=== PATIENT | male | born 1975 | race Caucasian/White ===

== ENCOUNTER → 2016-08-13 | Outpatient (CLI) | payer MEDICARE, MEDICAID | LOC: RAD 12:43 | PROVIDERS: ATTEND Specialist | DX: M51.16 Intervertebral disc disorders with radiculopathy, lumbar region (principal) | CPT/HCPCS: 36415; 72114; 72131 ==

== ENCOUNTER 2016-10-16 15:05 | Emergency (ER) | payer MEDICARE, MEDICAID ==
[2016-10-16] MEDS ORDERED: DEXAMETHASONE SOD PHOS INJ 10 MG/1 ML VIAL IM ONE (16:27)
[2016-10-16] MEDS ORDERED: KETOROLAC TROMETHAMINE 60 MG/2 ML SDV IM ONE (16:27)
--- NOTE | 2016-10-16 16:30 | ER Document Report ---
ED Neck/Back Problem - General Chief Complaint: Neck Pain < 24hrs old Stated Complaint: NECK PAIN Time Seen by Provider: 10/16/16 15:40 Mode of Arrival: Ambulatory Information source: Patient Notes: 21-year-old male presents to ED for complaint of neck pain radiating down his left arm TRAVEL OUTSIDE OF THE [place] IN LAST 30 DAYS: No - HPI Onset: This afternoon Where: Home, Outdoors - Lifting a log to put on a bonfire felt a pop in his neck and pain down his left arm like when he pinched his nerve in the past he states Onset: Gradual Timing: Still present Quality of pain: Burning, Sharp Severity: Severe Pain Level: 5 Context: Lifting Recent injury: Possibly Associated symptoms: Numbness/tingling, Radiation to arm Exacerbated by: Nothing Relieved by: Nothing Similar symptoms previously: Yes - Back not with neck Recently seen / treated by doctor: No - Related Data Allergies/Adverse Reactions: acetaminophen [From Vicodin] Allergy (Verified 10/16/16 16:14) codeine Allergy (Verified 10/16/16 16:14) hydrocodone [From Vicodin] Allergy (Verified 10/16/16 16:14) meloxicam [From Mobic] Allergy (Verified 10/16/16 16:14) H2O2 Allergy (Uncoded 10/16/16 16:14) Past Medical History - General Information source: Patient - Social History Smoking Status: Current Every Day Smoker Cigarette use (# per day): Yes - Half pack per day Chew tobacco use (# tins/day): No Smoking Education Provided: Yes - Less than 2 minutes Frequency of alcohol use: None Drug Abuse: None 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 Family History: Arthritis, CAD, COPD, CVA, Hyperlipidemia, Hypertension, Thyroid Disfunction - Past Medical History Cardiac Medical History: Reports: Hx Hypertension Pulmonary Medical History: Reports: None EENT Medical History: Reports: None Neurological Medical History: Reports: None Endocrine Medical History: Reports: None Renal/ Medical History: Reports: Hx Kidney Stones Malignancy Medical History: Reports None GI Medical History: Reports: Hx Gastroesophageal Reflux Disease Musculoskeltal Medical History: Reports Hx Arthritis, Reports Hx Musculoskeletal Deformity, Reports Hx Musculoskeletal Trauma Skin Medical History: Reports None Psychiatric Medical History: Reports: None Traumatic Medical History: Reports: Hx Fractures Past Surgical History: Reports: Hx Orthopedic Surgery - back(bunionectomy discectomy and fusion) right shoulder, foot - Immunizations Hx Diphtheria, Pertussis, Tetanus Vaccination: Yes Review of Systems - Review of Systems Constitutional: No symptoms reported EENT: No symptoms reported Cardiovascular: No symptoms reported Respiratory: No symptoms reported Gastrointestinal: No symptoms reported Genitourinary: No symptoms reported Male Genitourinary: No symptoms reported Musculoskeletal: Neck pain - Down left arm Skin: No symptoms reported Hematologic/Lymphatic: No symptoms reported Neurological/Psychological: No symptoms reported, Tingling -: Yes All other systems reviewed and negative Physical Exam - Vital signs Vitals: Temp Pulse Resp BP Pulse Ox 98.1 F 93 16 149/106 H 99 10/16/16 15:14 10/16/16 15:14 10/16/16 15:14 10/16/16 15:14 10/16/16 15:14 Interpretation: Normal - General General appearance: Appears well, Alert - HEENT Head: Normocephalic, Atraumatic Eyes: Normal Pupils: PERRL - Respiratory Respiratory status: No respiratory distress Chest status: Nontender Breath sounds: Normal Chest palpation: Normal - Cardiovascular Rhythm: Regular Heart sounds: Normal auscultation Murmur: No - Abdominal Inspection: Normal Distension: No distension Bowel sounds: Normal Tenderness: Nontender Organomegaly: No organomegaly - Back Back: Normal, Tender, Vertebra tenderness, Scars - Previous surgeries. No: Deformity/step-off, CVA tenderness, Scoliosis, Wounds - Extremities General upper extremity: Normal inspection, Nontender, Normal color, Normal ROM , Normal temperature General lower extremity: Normal inspection, Nontender, Normal color, Normal ROM , Normal temperature, Normal weight bearing. No: Milvia's sign - Neurological Neuro grossly intact: Yes Cognition: Normal Orientation: AAOx4 [place] Coma Scale Eye Opening: Spontaneous [place] Coma Scale Verbal: Oriented [place] Coma Scale Motor: Obeys Commands [place] Coma Scale Total: 15 Speech: Normal Motor strength normal: LUE, RUE, LLE, RLE Sensory: Normal - Psychological Associated symptoms: Normal affect, Normal mood - Skin Skin Temperature: Warm Skin Moisture: Dry Skin Color: Normal Course - Re-evaluation Re-evalutation: 10/16/16 20:15 CT discussed with patient and written report given to patient. Patient was treated with Decadron and Toradol IM. Patient to follow-up with his primary doctor. - Vital Signs Vital signs: Temp Pulse Resp BP Pulse Ox 97.5 F 70 16 143/94 H 99 10/16/16 18:20 10/16/16 18:20 10/16/16 18:20 10/16/16 18:20 10/16/16 18:20 - Diagnostic Test Radiology reviewed: Image reviewed, Reports reviewed Discharge - Discharge Clinical Impression: Neck pain on left side Condition: Stable Disposition: HOME, SELF-CARE Additional Instructions: NECK INJURY (CERVICAL STRAIN): You have a neck strain. This is an injury to the muscles and ligaments in the neck. There is no evidence of a fracture of the neck bones. Also, no injury to the spinal cord or nerve roots was detected. Usually, stiffness and pain INCREASE for the first 24-48 hours after the injury. The pain will gradually resolve and the neck will become more mobile. Most patients are back at work or school within a few days. Typically, complete healing takes about two or three weeks. The usual initial treatment is rest and cold packs. A neck collar may be placed to keep the muscles of the neck at rest. Antiinflammatory and muscle relaxing medication are often used to reduce the spasm and irritation. You should call the doctor, or go to the hospital, if you develop numbness or weakness in any extremity, problems with your bladder or bowel, or pain radiating down the arms. MUSCLE STRAIN: You have strained a muscle -- torn the fibers within the muscle. This often occurs with strenuous exertion, or during an injury that suddenly stretches the muscle. The seriousness of a strain varies. Some strains heal within days, others cause problems for months. X-rays cannot show a muscle strain. X-rays are taken only if symptoms suggest that a fracture could be present. The usual treatment of a muscle strain is rest and ice packs. Sometimes, a sling, splint, or crutches may be necessary to rest the muscle. The muscle can be used again once pain subsides. Severe strains require a special exercise and stretching program to prevent permanent stiffness and disability. Your doctor will advise you if this will be necessary. Call the doctor immediately if pain or swelling becomes severe, or if numbness or discoloration develop. USE OF TYLENOL (ACETAMINOPHEN): Acetaminophen may be taken for pain relief or fever control. It's much safer than aspirin, offering a wider range of "safe" dosages. It is safe during . Some brand names are Tylenol, Panadol, Datril, Anacin 3, Tempra, and Liquiprin. Acetaminophen can be repeated every four hours. The following are maximum recommended dosages: WEIGHT Dose Drops Elixir Chewable( 80mg) (LBS.) drprs=droppers tsp=teaspoon 6 40 mg 0.4 ml (1/2) 6-11 80 mg 0.8 ml (full) tsp 1 tab 12-16 120 mg 1 1/2 drprs 3/4 tsp 1 1/2 tabs 17-23 160 mg 2 drprs 1 tsp 2 tabs 24-30 240 mg 3 drprs 1 1/2 tsp 3 tabs 30-35 320 mg 2 tsp 4 tabs 36-41 360 mg 2 1/4 tsp 4 1/2 tabs 42-47 400 mg 2 1/2 tsp 5 tabs 48-53 480 mg 3 tsp 6 tabs 54-59 520 mg 3 1/4 tsp 6 1/2 tabs 60-64 560 mg 3 1/2 tsp 7 tabs 65-70 600 mg 3 3/4 tsp 7 1/2 tabs 71-76 640 mg 4 tsp 8 tabs 77-82 720 mg 4 1/2 tsp 9 tabs 83-88 800 mg 5 tsp 10 tabs >89 pounds or adults 650 mg to 900 mg Acetaminophen can be repeated every four hours. Maximum dose not to exceed 4000 mg a day. These maximum recommended dosages are slightly higher than the dosages written on the product container, but these dosages are very safe and below the toxic dosage for acetaminophen. ICE PACKS: Apply ice packs frequently against the painful area. Many different schedules are recommended, such as "20 minutes on, 20 minutes off" or "one hour ice, two hours rest." If you need to work, you may need to go longer between ice treatments. You should plan to have the area ice packed AT LEAST one fourth of the time. The ice should be applied over the wrap, tape, or splint, or over a layer of cloth -- not directly against the skin. Some ice bags have a built-in cloth and can be put directly on the skin. WARM PACKS: After approximately two days, apply gentle heat (such as a heating pad or hot water bottle) for about 20 to 30 minutes about every two hours -- at least four times daily. Warmth and elevation will help you make a more rapid recovery , and will ease the pain considerably. Do not use HOT heat, and never apply heat for longer than 30 minutes. The continuous heat can invisibly damage skin and muscles -- even when no burn is seen on the surface. Damaged muscles can make you MORE sore. MUSCLE RELAXERS: Muscle relaxing medications are usually prescribed for acute muscle spasm or injury to the neck and back. They are often combined with antiinflammatory pain medication for increased relief. You may stop the muscle relaxer when the pain and stiffness have improved. Start the medication again if spasms recur. Muscle relaxers may cause drowsiness, especially with the first dose. Do not operate machinery or drive while under the effects of the medication. Most muscle relaxers last up to 24 hours. Do not combine the medication with alcohol. FOLLOW-UP CARE: If you have been referred to a physician for follow-up care, call the physician s office for an appointment as you were instructed or within the next two days. If you experience worsening or a significant change in your symptoms, notify the physician immediately or return to the Emergency Department at any time for re-evaluation. Prescriptions: Cyclobenzaprine HCl [Flexeril 10 mg Tablet] 10 mg PO TIDP PRN #15 tab PRN Reason: Forms: Elevated Blood Pressure, Smoking Cessation Education Referrals: [facility] [Provider Group] - Follow up as needed
--- NOTE | 2016-10-16 17:47 | RADIOLOGY REPORT (SQ) ---
EXAM DESCRIPTION: CT CERVICAL SPINE WITHOUT COMPLETED DATE/TIME: 10/16/2016 5:24 pm REASON FOR STUDY: felt and heard pop in neck radiating down rt arm COMPARISON: None. TECHNIQUE: Axial images acquired through the cervical spine without intravenous contrast. Images re viewed with lung, soft tissue and bone windows. Reconstructed coronal and sagittal MPR images review ed. Images stored on PACS. All CT scanners at this facility use dose modulation, iterative reconstruction, and/or weight based d osing when appropriate to reduce radiation dose to as low as reasonably achievable (ALARA). [facility]: Dose Right [facility]: CareDose [facility]: Dose Right [facility]: Teradose 4D [facility]: Vend-a-Bar RADIATION DOSE: 20.95 mGy. LIMITATIONS: None. FINDINGS: ALIGNMENT: Anatomic. MINERALIZATION: Normal. VERTEBRAL BODIES: No fractures or dislocation. DISCS: No significant disc disease. FACETS, LATERAL MASSES, POSTERIOR ELEMENTS: No fractures. No dislocation. No acute findings. HARDWARE: None in the spine. VISUALIZED RIBS: No fractures. LUNG APICES AND SOFT TISSUES: No significant or acute findings. OTHER: No other significant finding. IMPRESSION: NO ACUTE OR SIGNIFICANT FINDINGS IN THE CERVICAL SPINE. TECHNICAL DOCUMENTATION: JOB ID: [id number] Quality ID # [id number]: Final reports with documentation of one or more dose reduction techniques (e.g., Au tomated exposure control, adjustment of the mA and/or kV according to patient size, use of iterative reconstruction technique) 2010 [employer]- All Rights Reserved
[2016-10-16 18:34] VITALS: BP 143/94
== END 2016-10-16 18:20 | disposition home or self-care (01) ==
LOC: ER 15:05
DX: M54.2 Cervicalgia (principal); R20.2 Paresthesia of skin; X50.0XXA Overexertion from strenuous movement or load, initial encounter; Y93.89 Activity, other specified; I10 Essential (primary) hypertension; Z88.5 Allergy status to narcotic agent; Z88.8 Allergy status to other drugs, medicaments and biological substances
CPT/HCPCS: 99283; 96372; 72125; J1885; J1100

== ENCOUNTER 2017-02-02 19:06 | Emergency (ER) | payer MEDICARE, MEDICAID ==
--- NOTE | 2017-02-02 20:48 | ER Document Report ---
ED Neck/Back Problem - General Chief Complaint: Low Back Pain Stated Complaint: BACK PAIN Time Seen by Provider: 02/02/17 20:27 Mode of Arrival: Ambulatory Notes: 41-year-old male presents to ED for complaint of low back pain. He states she has had similar symptoms in the past he states he was working on his boat today with increased pain. He states he was walking down the street and his leg buckled and he fell down so he went back home got on his bed and his legs were jumping. He states he takes Tylenol or Aleve and other medicines with no relief. He has a referral in progress for chronic pain management. He states he takes 2000 mg of Tylenol every 2 hours for the last 5 years. He states he cannot take ibuprofen because he is allergic to it but he takes Aleve on a regular basis. TRAVEL OUTSIDE OF THE [place] IN LAST 30 DAYS: No - HPI Patient complains to provider of: Upper back, Lower back Onset: Other - Chronic for many years Onset: Chronic Timing: Waxing and waning, Still present Quality of pain: Sharp Severity: Severe Pain Level: 5 Context: Other - States his pain was so bad today that he was walking down the street in his legs buckled and then his leg started jumping when he got back up Recent injury: Possibly Associated symptoms: Like prior neck/back pain, Numbness/tingling - Patient states he has had numbness from his chest down from multiple years. He is able to feel me touch both legs his chest is back, Radiation to leg, Lower back pain , Upper back pain. denies: Constipation, Fever, Incontinence, Motor loss, Sensory loss, Sweaty, Unable to urinate Exacerbated by: Movement of trunk, Sitting position Relieved by: Nothing Similar symptoms previously: Yes Recently seen / treated by doctor: Yes - Related Data Allergies/Adverse Reactions: acetaminophen [From Vicodin] Allergy (Verified 02/02/17 19:12) codeine Allergy (Verified 02/02/17 19:12) hydrocodone [From Vicodin] Allergy (Verified 02/02/17 19:12) meloxicam [From Mobic] Allergy (Verified 02/02/17 19:12) morphine Allergy (Verified 02/02/17 19:12) H2O2 Allergy (Uncoded 02/02/17 19:12) Past Medical History - General Information source: Patient - Social History Smoking Status: Current Every Day Smoker Cigarette use (# per day): Yes - Half pack per day Chew tobacco use (# tins/day): No Smoking Education Provided: Yes - Less than 2 minutes Frequency of alcohol use: Social Drug Abuse: None 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 Family History: Arthritis, CAD, COPD, CVA, Hyperlipidemia, Hypertension, Thyroid Disfunction - Past Medical History Cardiac Medical History: Reports: Hx Hypertension Pulmonary Medical History: Reports: None EENT Medical History: Reports: None Neurological Medical History: Reports: None Endocrine Medical History: Reports: None Renal/ Medical History: Reports: Hx Kidney Stones Malignancy Medical History: Reports None GI Medical History: Reports: Hx Gastroesophageal Reflux Disease Musculoskeltal Medical History: Reports Hx Arthritis, Reports Hx Musculoskeletal Deformity, Reports Hx Musculoskeletal Trauma Skin Medical History: Reports None Psychiatric Medical History: Reports: None Traumatic Medical History: Reports: Hx Fractures Infectious Medical History: Reports: None Past Surgical History: Reports: Hx Orthopedic Surgery - back(bunionectomy discectomy and fusion) right shoulder, foot - Immunizations Hx Diphtheria, Pertussis, Tetanus Vaccination: Yes Review of Systems - Review of Systems Constitutional: No symptoms reported EENT: No symptoms reported Cardiovascular: No symptoms reported Respiratory: No symptoms reported Gastrointestinal: No symptoms reported Genitourinary: No symptoms reported Male Genitourinary: No symptoms reported Musculoskeletal: Back pain, Muscle pain, Muscle stiffness Skin: No symptoms reported Hematologic/Lymphatic: No symptoms reported Neurological/Psychological: No symptoms reported -: Yes All other systems reviewed and negative Physical Exam - Vital signs Vitals: Temp Pulse Resp BP Pulse Ox 97.0 F 96 20 128/87 H 98 02/02/17 19:10 02/02/17 19:10 02/02/17 19:10 02/02/17 19:10 02/02/17 19:10 Interpretation: Normal - General General appearance: Appears well, Alert - HEENT Head: Normocephalic, Atraumatic Eyes: Normal Pupils: PERRL - Respiratory Respiratory status: No respiratory distress Chest status: Nontender Breath sounds: Normal Chest palpation: Normal - Cardiovascular Rhythm: Regular Heart sounds: Normal auscultation Murmur: No - Abdominal Inspection: Normal Distension: No distension Bowel sounds: Normal Tenderness: Nontender Organomegaly: No organomegaly - Back Back: Normal, Nontender, Scars. No: Tender, Deformity/step-off, CVA tenderness , Vertebra tenderness, Scoliosis, Wounds - Extremities General upper extremity: Normal inspection, Nontender, Normal color, Normal ROM , Normal temperature General lower extremity: Normal inspection, Nontender, Normal color, Normal ROM , Normal temperature, Normal weight bearing. No: Milvia's sign - Neurological Neuro grossly intact: Yes Cognition: Normal Orientation: AAOx4 [place] Coma Scale Eye Opening: Spontaneous [place] Coma Scale Verbal: Oriented [place] Coma Scale Motor: Obeys Commands [place] Coma Scale Total: 15 Speech: Normal Motor strength normal: LUE, RUE, LLE, RLE Sensory: Normal - Psychological Associated symptoms: Normal affect, Normal mood - Skin Skin Temperature: Warm Skin Moisture: Dry Skin Color: Normal Course - Re-evaluation Re-evalutation: 02/02/17 22:14 Patient treated with muscle relaxers. Patient to follow-up with his primary doctor or his pain management doctor. Explained to patient that I cannot give him narcotics for his chronic pain. Patient instructed that Tylenol cannot be taken more than 4 g in a day or he will kill his liver. - Vital Signs Vital signs: Temp Pulse Resp BP Pulse Ox 98.9 F 100 18 148/87 H 98 02/02/17 21:00 02/02/17 21:00 02/02/17 21:00 02/02/17 21:00 02/02/17 21:00 Discharge - Discharge Clinical Impression: Back pain Qualifiers: Back pain location: low back pain Chronicity: chronic Back pain laterality: bilateral Sciatica presence: with sciatica Sciatica laterality: sciatica of right side Qualified Code(s): M54.41 - Lumbago with sciatica, right side Condition: Stable Disposition: HOME, SELF-CARE Instructions: Stretching Exercises for the Back (OM) Additional Instructions: LOW BACK PAIN: Three out of every four people will have an episode of disabling back pain during their lifetime. Most commonly the pain is due to straining of the muscles and ligaments in the low back. Usual treatment includes: (1) Rest on a firm surface. Avoid lying on your stomach. (2) Ice pack the painful area. After a few days, gentle heat may be used intermittently to relax the area, or ice packs can be continued. (3) Medication may be needed -- muscle relaxers and antiinflammatory medicines are commonly used. (4) As the back improves, exercises are prescribed to strengthen the back and abdominal muscles. Your doctor will advise you on the proper care for your back at each stage in your recovery. You may be better in a few days -- or healing may take several weeks. If new symptoms of a "herniated disc" (radiation of pain, numbness, or tingling down the back of the leg or weakness in the leg) occur, you should be re-examined. Further testing may be necessary. MUSCLE RELAXERS: Muscle relaxing medications are usually prescribed for acute muscle spasm or injury to the neck and back. They are often combined with antiinflammatory pain medication for increased relief. You may stop the muscle relaxer when the pain and stiffness have improved. Start the medication again if spasms recur. Muscle relaxers may cause drowsiness, especially with the first dose. Do not operate machinery or drive while under the effects of the medication. Most muscle relaxers last up to 24 hours. Do not combine the medication with alcohol. ICE PACKS: Apply ice packs frequently against the painful area. Many different schedules are recommended, such as "20 minutes on, 20 minutes off" or "one hour ice, two hours rest." If you need to work, you may need to go longer between ice treatments. You should plan to have the area ice packed AT LEAST one fourth of the time. The ice should be applied over the wrap, tape, or splint, or over a layer of cloth -- not directly against the skin. Some ice bags have a built-in cloth and can be put directly on the skin. WARM PACKS: After approximately two days, apply gentle heat (such as a heating pad or hot water bottle) for about 20 to 30 minutes about every two hours -- at least four times daily. Warmth and elevation will help you make a more rapid recovery , and will ease the pain considerably. Do not use HOT heat, and never apply heat for longer than 30 minutes. The continuous heat can invisibly damage skin and muscles -- even when no burn is seen on the surface. Damaged muscles can make you MORE sore. FOLLOW-UP CARE: If you have been referred to a physician for follow-up care, call the physician s office for an appointment as you were instructed or within the next two days. If you experience worsening or a significant change in your symptoms, notify the physician immediately or return to the Emergency Department at any time for re-evaluation. Prescriptions: Cyclobenzaprine HCl [Flexeril 10 mg Tablet] 10 mg PO TIDP PRN #15 tab PRN Reason: Forms: Elevated Blood Pressure, Smoking Cessation Education
[2017-02-02 21:05] VITALS: BP 148/87
== END 2017-02-02 21:05 | disposition home or self-care (01) ==
LOC: ER 19:06
DX: M54.41 Lumbago with sciatica, right side (principal); M54.5 Low back pain; M54.6 Pain in thoracic spine; W19.XXXA Unspecified fall, initial encounter; F17.210 Nicotine dependence, cigarettes, uncomplicated
CPT/HCPCS: 99283

== ENCOUNTER → 2017-05-04 | Outpatient (CLI) | payer MEDICARE, MEDICAID ==
[2017-05-04 10:40] LABS: HEMATOCRIT 45.6 % (37.9-51.0); HEMOGLOBIN 15.4 g/dL (13.5-17.0); HGB HCT DIFFERENCE 0.6; MEAN CORPUSCULAR HGB CONC 33.8 g/dL (32.0-36.0); MEAN CORPUSCULAR VOLUME 95 fl (80-97); RED BLOOD COUNT 4.82 10^6/uL (4.35-5.55); RED CELL DISTRIBUTION WIDTH 13.5 % (11.5-14.0); WHITE BLOOD COUNT 7.7 10^3/uL (4.0-10.5)
[2017-05-04 11:17] LABS: ALANINE AMINOTRANSFERASE 43 U/L (21-72); ALKALINE PHOSPHATASE 90 U/L (38-126); ANION GAP 13 (5-19); ASPARTATE AMINO TRANSFERASE 28 U/L (17-59); BILIRUBIN,DIRECT 0.4 mg/dL (0.0-0.4); BILIRUBIN,TOTAL 0.6 mg/dL (0.2-1.3); BLOOD UREA NITROGEN 9 mg/dL (7-20); CARBON DIOXIDE 28 mmol/L (22-30); CHLORIDE 103 mmol/L (98-107); CREATININE RESULT 0.88 mg/dL (0.52-1.25); GLUCOSE 79 mg/dL (75-110); POTASSIUM 4.5 mmol/L (3.6-5.0); TOTAL PROTEIN 7.7 g/dL (6.3-8.2)
== END ==
LOC: LAB 10:17
PROVIDERS: ATTEND Nurse Practitioner Psychiatric/Mental Health
DX: G89.4 Chronic pain syndrome (principal); Z79.899 Other long term (current) drug therapy
CPT/HCPCS: 36415; 80048; 80076; 85027

== ENCOUNTER 2018-01-26 07:44 | Emergency (ER) | payer MEDICARE, MEDICAID ==
[2018-01-26] MEDS ORDERED: PREDNISONE 20 MG TABLET PO ONE (09:47)
[2018-01-26] MEDS ORDERED: ACETAMINOPHEN 325 MG TABLET PO ONE (09:47)
--- NOTE | 2018-01-26 10:18 | ER Document Report ---
ED Neck/Back Problem <ARI SIMS - Last Filed: 01/26/18 11:13> - General Information source: Patient TRAVEL OUTSIDE OF THE [place] IN LAST 30 DAYS: No <CALDERON HANSEN - Last Filed: 01/26/18 14:00> - General Chief Complaint: Back Pain Stated Complaint: BACK PAIN Time Seen by Provider: 01/26/18 09:20 Notes: 42-year-old male with history of L4-L5 and L3-L4 fusion that presents to the emergency department today with complaints of exacerbation of chronic back pain. Patient mentions that he has had intermittent sensations where his legs feel numb and he "feels something pop" and feeling comes back. Patient denies any bladder or bowel incontinence. (CALDERON HANSEN) - Related Data Allergies/Adverse Reactions: acetaminophen [From Vicodin] Allergy (Verified 01/26/18 07:46) codeine Allergy (Verified 01/26/18 07:46) hydrocodone [From Vicodin] Allergy (Verified 01/26/18 07:46) meloxicam [From Mobic] Allergy (Verified 01/26/18 07:46) morphine Allergy (Verified 01/26/18 07:46) H2O2 Allergy (Uncoded 02/02/17 19:12) Past Medical History - General Information source: Patient - Social History Smoking Status: Current Every Day Smoker Cigarette use (# per day): Yes Chew tobacco use (# tins/day): No Frequency of alcohol use: None Drug Abuse: None Lives with: Family Family History: Arthritis, CAD, COPD, CVA, Hyperlipidemia, Hypertension, Thyroid Disfunction Patient has suicidal ideation: No Patient has homicidal ideation: No - Past Medical History Cardiac Medical History: Reports: Hx Hypertension Renal/ Medical History: Reports: Hx Kidney Stones GI Medical History: Reports: Hx Gastroesophageal Reflux Disease Musculoskeletal Medical History: Reports Hx Arthritis, Reports Hx Musculoskeletal Deformity, Reports Hx Musculoskeletal Trauma Traumatic Medical History: Reports: Hx Fractures Past Surgical History: Reports: Hx Orthopedic Surgery - back(bunionectomy discectomy and fusion) right shoulder, foot - Immunizations Hx Diphtheria, Pertussis, Tetanus Vaccination: Yes <CALDERON HANSEN - Last Filed: 01/26/18 14:00> Review of Systems - Review of Systems Constitutional: No symptoms reported EENT: No symptoms reported Cardiovascular: No symptoms reported Respiratory: No symptoms reported Gastrointestinal: No symptoms reported Genitourinary: No symptoms reported Male Genitourinary: No symptoms reported Musculoskeletal: See HPI, Back pain Skin: No symptoms reported Hematologic/Lymphatic: No symptoms reported Neurological/Psychological: See HPI, Numbness - legs intermittently -: Yes All other systems reviewed and negative <CALDERON HANSEN - Last Filed: 01/26/18 14:00> Physical Exam <ARI SIMS - Last Filed: 01/26/18 11:13> <CALDERON HANSEN - Last Filed: 01/26/18 14:00> - Vital signs Vitals: Temp Pulse Resp BP Pulse Ox 97.9 F 102 H 16 157/118 H 97 01/26/18 07:49 01/26/18 07:49 01/26/18 07:49 01/26/18 07:49 01/26/18 07:49 - Notes Notes: Physical Exam: General: Alert, appears well. HEENT: Normocephalic. Atraumatic. PERRL. Extraocular movements intact. Oropharynx clear. Neck: Supple. Non-tender. Respiratory: No respiratory distress. Coarse breath sounds bilaterally consistent with smoking history. Cardiovascular: Regular rate and rhythm. Abdominal: Normal Inspection. Non-tender. No distension. Normal Bowel Sounds. Back: Lumbar paravertebral musculature tenderness palpation. No deformity or step off. Extremities: Moves all four extremities. Upper extremities: Normal inspection. Normal ROM. Lower extremities: Normal inspection. No edema. Normal ROM. Neurological: Normal cognition. AAOx4. Normal speech. No saddle anesthesia. No lower extremity anesthesia. Psychological: Normal affect. Normal Mood. Skin: Warm. Dry. Normal color. (CALDERON HANSEN) Course - Diagnostic Test Radiology reviewed: Image reviewed, Reports reviewed - Stable fusion at L3-4 and L4-5, anterior listhesis at L2-3 that is unchanged from 2016. <ARI SIMS - Last Filed: 01/26/18 11:13> - Vital Signs Vital signs: Temp Pulse Resp BP Pulse Ox 97.7 F 85 20 165/100 H 100 01/26/18 11:11 01/26/18 11:11 01/26/18 11:11 01/26/18 11:11 01/26/18 11:11 Discharge <ARI SIMS - Last Filed: 01/26/18 11:13> <CALDERON HANSEN - Last Filed: 01/26/18 14:00> - Discharge Clinical Impression: Acute exacerbation of chronic low back pain, Bilateral lumbar radiculopathy High blood pressure Qualifiers: Hypertension type: essential hypertension Qualified Code(s): I10 - Essential ( primary) hypertension Condition: Stable Disposition: HOME, SELF-CARE Additional Instructions: The back pain you are having seems to be related to the lumbar back muscles and not your lumbar spine or disc disease. The pain and numbness you experienced in your legs is most likely related to your lumbar disc disease. We will put you on muscle relaxers for the back muscle pain, and steroids for the radiculopathy symptoms. You should try to rest and avoid activity and positions that worsen your symptoms. Your blood pressure was elevated today, and I understand you have a history of high blood pressure. Follow-up with your primary care provider this week to discuss management of your blood pressure, and possible referral to a addictions recovery specialist.. RETURN TO THE EMERGENCY ROOM IF ANY NEW OR WORSENING SYMPTOMS. Prescriptions: Cyclobenzaprine HCl [Flexeril 5 mg Tablet] 5 mg PO TID PRN #15 tablet PRN Reason: RX: Prednisone [Deltasone 10 mg Tablet] 10 mg PO ASDIR PRN #21 tablet PRN Reason: Referrals: ARMIN AGEE NP-C [Primary Care Provider] - Follow up as needed Scribe Attestation: 01/26/18 11:02 I personally performed the services described in the documentation, reviewed and edited the documentation which was dictated to the scribe in my presence, and it accurately records my words and actions. (ARI SIMS) Scribe Documentation - Scribe Written by Vanceibe:: Edwardo Marquez, 01/26/2018 1400 acting as scribe for :: Devin <CALDERON HANSEN - Last Filed: 01/26/18 14:00>
--- NOTE | 2018-01-26 10:33 | RADIOLOGY REPORT (SQ) ---
EXAM DESCRIPTION: L SPINE WHOLE COMPLETED DATE/TIME: 01/26/2018 10:14 am REASON FOR STUDY: Low back pain, radiculopathy, prior fusion COMPARISON: Lumbar spine films 08/13/2016, 06/17/2015 CT lumbar spine 08/13/2016 MRI lumbar spine 04/28/2016 NUMBER OF VIEWS: Five views including obliques. TECHNIQUE: AP, lateral, oblique, and sacral radiographic images acquired of the lumbar spine. LIMITATIONS: None. FINDINGS: MINERALIZATION: Grossly normal bone density SEGMENTATION: Short ribs/long transverse processes at L1, tiny disc space between S1 and S2 ALIGNMENT: There is grade 1 anterolisthesis of L2 over L3, similar compared to plain films dating lance k to 2015. VERTEBRAE: Maintained height. No fracture or worrisome bone lesion. DISCS: Advanced disc space loss of height with vertebral body endplate sclerosis and vacuum disc phen omenon at L2-3. POSTERIOR ELEMENTS: Old bilateral laminectomies at L4 and L5 HARDWARE: Old fusion hardware with dorsal fixation plates and transpedicular screws at L4, L5, and S1 . No lucency around the hardware worrisome for loosening. PARASPINAL SOFT TISSUES: Normal. PELVIS: Not in the field of view OTHER: Prior MRI 04/28/2016 demonstrated high-grade central canal stenosis at L2-3. IMPRESSION: Advanced degenerative disc space loss of height with degenerative grade 1 anterolisthesi s at L2-3, similar compared to plain films dating back to 2015. TECHNICAL DOCUMENTATION: JOB ID: [id number] [employer]- All Rights Reserved Reading location - IP/workstation name: [email or web address]
[2018-01-26 11:15] VITALS: BP 165/100
== END 2018-01-26 11:24 | disposition home or self-care (01) ==
LOC: ER 07:44
DX: M54.5 Low back pain (principal); M54.16 Radiculopathy, lumbar region; G89.29 Other chronic pain; I10 Essential (primary) hypertension
CPT/HCPCS: 99283; 72110; A9270 ×2; J7512